=== PATIENT | female | born 1990 | race Caucasian/White ===

== ENCOUNTER 2022-01-14 15:06 | Outpatient (CLI) | payer BC, SELFPAY ==
[2022-01-14 12:22] LABS: Hemoglobin A1C 5.7 % (<5.7)
[2022-01-14 13:05] LABS: Glucose 89 mg/dL (74-106); TSH 1.56 uIU/mL (0.36-3.74)
[2022-01-14 22:11] LABS: Thyroperoxidase Antibody <28 U/mL (<=60)
[2022-01-15 10:10] LABS: DHEA Sulfate 71 ug/dL (96-512)
[2022-01-20 10:00] LABS: Testosterone, Total 32 ng/dL (8-60)
== END 2022-01-14 15:07 | disposition home or self-care (01) ==
LOC: LBO 15:07
PROVIDERS: PCP Nurse Practitioner Family; Visit Provider Internal Medicine Endocrinology, Diabetes & Metabolism
DX: E04.9 Nontoxic goiter, unspecified (principal); L68.0 Hirsutism; Z83.3 Family history of diabetes mellitus
CPT/HCPCS: 36415; 82627; 82947; 84403; 83036; 84443; 86376

== ENCOUNTER 2023-03-07 09:37 | Outpatient (REF) | payer OTHER, SELFPAY | END 2023-03-07 09:38 | disposition home or self-care (01) | LOC: LBN 09:37 | PROVIDERS: PCP Nurse Practitioner Family; Visit Provider Physician Assistant | DX: J02.9 Acute pharyngitis, unspecified (principal) | CPT/HCPCS: 87070 ==

== ENCOUNTER 2023-05-16 15:23 | Emergency (ER) | payer OTHER, SELFPAY ==
[2023-05-16] VITALS (10 sets, daily range): BP systolic 132–165; BP diastolic 83–114; PULSE 74–95; RESP 15–28; TEMP 36.2; O2SAT 99
--- NOTE | 2023-05-16 15:15 | RT.EKG_ITS ---
APPROVED REPORT Exam: Resting ECG Reason for Exam: chest pain Patient Location: E HR:76 bpm ECG Measurements Heart Rate 76 AXIS TN 144 P 23 QRSd 99 QRS 63 QT 396 T 3 QTc 446 Conclusion Sinus rhythm normal axis no acute ST segment changes
--- NOTE | 2023-05-16 15:38 | ED.GENADUL_ITS ---
Discharge Plan Disposition Patient Disposition: Home Condition: Good Discharge Details Clinical Impression: Chest pain due to GERD, Acid reflux Primary Care Provider: Medina Dumont ED Provider: Wayne Levy Home Meds and New Rx's Prescriptions: New omeprazole 20 mg capsule,delayed release(DR/EC) 20 mg PO BID Qty: 60 0RF sucralfate [Carafate] 100 mg/mL suspension 10 ml PO QACHS Qty: 1000 0RF No Action Flonase Sensimist 27.5 mcg/actuation spray,suspension 2 spray intranasal DAILY Qty: 9.1 0RF Rx Instructions: into each nostril Discharge Instructions Instructions: GERD (Gastroesophageal Reflux Disease) (ED) Additional Instructions: start medications as prescribed watch diet triggers follow up with PCP if symptoms not improving Medical Decision Making Emergent evaluation of chest pain consistent with acid reflux. Doubt pancreatitis given lack of abdominal tenderness. Consider gastritis or esophagitis. Doubt ulcer or perforation given benign symptoms. Medication given in the emergency department which improved symptoms. Will restart on daily omeprazole. Carafate given as well. Return precautions advised. Follow- up with PCP as needed. Medical Records Medical records reviewed: Yes I reviewed the patient's medical records. Lab Data Lab results reviewed: Yes I reviewed the patient's lab results. ECG Data Attestation: I personally reviewed and interpreted this ECG (s) as follows: Prior ECG tracings: not available for review Interpretation: Sinus 76, normal axis, no significant ST segment changes HPI General Date/Time Provider Initiated Documentation: 05/16/23 15:38 . Limitations to Documentation: no limitations . Information obtained by: patient . HPI Narrative: 32-year-old female with past medical history of GERD presents for evaluation of esophageal burning. Reports that symptoms started after eating home fries with onions. She reports that she is supposed to be on a daily controller medication, but that she has not been taking it, because she has been controlling her diet. She states that when she ate this food, she immediately started having symptoms and they been progressively worsening. No relief with Tums at home. Pain feels like consistent with prior episodes of reflux. No shortness of breath. Related Data Home Medications Medication Instructions Recorded Confirmed fluticasone furoate 27.5 2 spray intranasal DAILY #9.1 mL 08/12/22 05/16/23 mcg/actuation nasal spray,suspension (Flonase Sensimist) omeprazole 20 mg capsule,delayed 20 mg PO BID #60 caps 05/16/23 release sucralfate 100 mg/mL oral 10 ml PO QACHS #1,000 mL 05/16/23 suspension (Carafate) Previous Rx's Medication Instructions Recorded fluticasone furoate 27.5 2 spray intranasal DAILY #9.1 mL 08/12/22 mcg/actuation nasal spray,suspension (Flonase Sensimist) omeprazole 20 mg capsule,delayed 20 mg PO BID #60 caps 05/16/23 release sucralfate 100 mg/mL oral 10 ml PO QACHS #1,000 mL 05/16/23 suspension (Carafate) Allergies Allergy/AdvReac Type Severity Reaction Status Date / Time No Known Drug Allergies Allergy Unverified 05/16/23 15:29 General Stated Complaint: Chest Pain TOMAS: 3 PFSH All Active Problems Acid reflux (Chronic) Chest pain due to GERD (Acute) Social History Smoking/Tobacco Use Status: Former Tobacco Use Smoking risk assessment performed?: Yes Alcohol Intake: current Alcohol Intake frequency: a few times a month Substance use type: does not use Housing: house Do you feel safe at home: Yes Do you feel safe in your relationship?: Yes Exam Narrative Exam Narrative: Review of Systems: All systems reviewed & are unremarkable except as noted in HPI and below Well-developed, no acute distress NACT PERRL, normal conjunctiva RRR Unlabored respiratory effort Nondistended abdomen, nontender Extremities w/o deformity, no cyanosis, no edema No rashes or lesions. no focal neurologic deficits Appropriate mood and affect Course Vital Signs Vital signs: Vital Signs Temperature 36.2 C L 05/16/23 15:25 Pulse 92 H 05/16/23 15:25 Respiratory Rate 20 05/16/23 15:25 Blood Pressure 165/114 H 05/16/23 15:25 Pulse Oximetry 99 05/16/23 15:25 Temperature 36.2 C L 05/16/23 15:25 Temperature Source Temporal Artery Scan 05/16/23 15:25 Pulse 92 H 05/16/23 15:25 Respiratory Rate 20 01/01/24 15:25 Blood Pressure 165/114 H 05/16/23 15:25 Blood Pressure Position Sitting 05/16/23 15:25 Pulse Oximetry 99 05/16/23 15:25 Oxygen Delivery Method Room Air 05/16/23 15:25 Oxygen Flow Rate 0 05/16/23 15:25 Pain Level 8 05/16/23 15:25
[2023-05-16] MEDS: Mylanta Suspension 30 ML CUP (15:40)
[2023-05-16] MEDS: Lidocaine 2% Viscous 1 ML Solution (15:40)
[2023-05-16] MEDS: Pantoprazole 40 MG TABCR PO (15:42)
[2023-05-16] MEDS: Famotidine 20 MG TAB 40 MG PO (15:42)
[2023-05-16] MEDS: Sucralfate 1 GM TAB PO ×2 (16:28→16:57)
== END 2023-05-16 16:59 | disposition home or self-care (01) ==
PROVIDERS: Emergency Provider Emergency Medicine; PCP Nurse Practitioner Family
DX: R07.89 Other chest pain (principal); K21.9 Gastro-esophageal reflux disease without esophagitis; Z87.891 Personal history of nicotine dependence
CPT/HCPCS: 93005; 99283; 93010

== ENCOUNTER 2025-03-20 17:23 | Emergency (ER) | payer OTHER, SELFPAY ==
[2025-03-20 17:25] VITALS: BP 145/83; PULSE 70; RESP 18; TEMP 36.3; O2SAT 98
== END 2025-03-20 17:48 | disposition left against medical advice (07) ==
LOC: ER 17:50
PROVIDERS: PCP Nurse Practitioner Family
DX: Z53.21 Procedure and treatment not carried out due to patient leaving prior to being seen by health care provider (principal)
CPT/HCPCS: 87637